=== PATIENT | female | born 1990 | race Two or more races ===

== ENCOUNTER → 2023-06-12 09:43 | Outpatient (BNVA) | payer OTHER, SELFPAY | PROVIDERS: Visit Provider Physician Assistant | DX: S46.912A Strain of unspecified muscle, fascia and tendon at shoulder and upper arm level, left arm, initial encounter (principal); X50.3XXA Overexertion from repetitive movements, initial encounter; M25.462 Effusion, left knee | CPT/HCPCS: 73564; 99204 ==

== ENCOUNTER → 2023-06-16 09:38 | Outpatient (BNVA) | payer OTHER, SELFPAY | PROVIDERS: Visit Provider Internal Medicine | DX: S56.912D Strain of unspecified muscles, fascia and tendons at forearm level, left arm, subsequent encounter (principal); X50.3XXD Overexertion from repetitive movements, subsequent encounter; M23.92 Unspecified internal derangement of left knee | CPT/HCPCS: 99213 ==

== ENCOUNTER → 2023-06-23 10:30 | Outpatient (BNVA) | payer OTHER, SELFPAY | PROVIDERS: Visit Provider Internal Medicine | DX: M23.92 Unspecified internal derangement of left knee (principal); S43.492D Other sprain of left shoulder joint, subsequent encounter; X50.3XXD Overexertion from repetitive movements, subsequent encounter | CPT/HCPCS: 99214 ==

== ENCOUNTER → 2023-07-07 09:49 | Outpatient (BNVA) | payer OTHER, SELFPAY | PROVIDERS: Visit Provider Internal Medicine | DX: S56.912D Strain of unspecified muscles, fascia and tendons at forearm level, left arm, subsequent encounter (principal); S83.92XD Sprain of unspecified site of left knee, subsequent encounter; Y04.8XXD Assault by other bodily force, subsequent encounter | CPT/HCPCS: 99213 ==